=== PATIENT | female | born 1945 | race American Indian/Alaskan Native ===

== ENCOUNTER 2018-11-15 07:20 | Outpatient (CLI) | payer MEDICARE | END 2018-11-15 07:21 | disposition home or self-care (01) | LOC: C.PAT 07:20 | DX: L72.3 Sebaceous cyst (principal) ==

== ENCOUNTER 2018-11-17 09:30 | Day surgery (SDC) | payer MEDICARE ==
[2018-11-15 07:36] VITALS: BMI 33.4
[2018-11-17] MEDS ORDERED: Lidocaine Hydrochloride 0 ML INJ ONE (12:08)
[2018-11-17] MEDS ORDERED: Bupivacaine-Epi 0.5%-1:200,000 PF Inj ONE (12:09)
[2018-11-17] MEDS ORDERED: Bupivacaine 0.25% 20 ML INJ IJ ONE (12:25)
[2018-11-17] MEDS ORDERED: Lidocaine/Epinephrine 1% 1:100000 10 ML IJ ONE (12:26)
[2018-11-17] MEDS ORDERED: Propofol 10 mg/ml Inj (20 ML) ONE (12:58)
[2018-11-17] MEDS ORDERED: Midazolam 2 MG/2 ML VIAL ONE (12:58)
[2018-11-17] MEDS ORDERED: ceFAZolin 1 gm in NS 2 GM/200 ML BAG IVPB ONE (12:59)
[2018-11-17] MEDS ORDERED: HYDROmorphone 0.5 mg/0.5 ml ISec IVP PRN (13:43)
--- NOTE | 2018-11-17 13:44 | PCM.SURG1 ---
Surgeon's Initial Post Op Note - Surgeon's Notes Surgeon: Dr. Montenegro Educational Coordinator: Kodi PGY2 Type of Anesthesia: MAC, IV Sedation, Local Anesthesia Administered By: Sonia Lawrence Pre-Operative Diagnosis: Sebaceous cyst of Neck Operative Findings: see operative report Post-Operative Diagnosis: same Operation Performed: Excision of posterior neck sebaceous cyst Specimen/Specimens Removed: sebaceous cyst Estimated Blood Loss: EBL {In ML}: 5 Blood Products Given: N/A Drains Used: No Drains Post-Op Condition: Good Date of Surgery/Procedure: 11/17/18 Time of Surgery/Procedure: 13:44
[2018-11-17 15:17] VITALS: BP 165/79; PULSE 59; RESP 16; TEMP 97.7; O2SAT 99
--- NOTE | 2018-11-18 02:05 | OP ---
PROCEDURE DATE: 11/17/2018 PREOPERATIVE DIAGNOSIS: Sebaceous cyst of the posterior neck, approximately 3 x 2 cm size. POSTOPERATIVE DIAGNOSIS: Sebaceous cyst of the posterior neck, approximately 3 x 2 cm size. PROCEDURES: 1. Excision of the sebaceous cyst of the neck, 3 x 2 cm size. 2. Layered closure of the wound, 3 x 2 x 2 cm size. ANESTHESIA: Local anesthesia plus sedation. ESTIMATED BLOOD LOSS: Around 10 mL. DRAINS: None. PATHOLOGY: The sebaceous cyst with overlying skin was sent for the pathology. COMPLICATIONS: None. INTRAOPERATIVE FINDINGS: The patient had approximately 3 x 2 cm sebaceous cyst of the posterior neck. DESCRIPTION OF PROCEDURE: On intraoperative steps, this is a 73-year-old female who was diagnosed with a sebaceous cyst of the posterior neck and the patient was consented for the excision, brought to the OR, placed supine on the operating table. After induction of the anesthesia, the posterior neck was prepped and draped in the usual sterile fashion. The local anesthesia was injected and elliptical incision was made approximately 3 x 2 cm size. The dissection was carried down superior and inferior and dissection was carried down deep up to the underlying deep subcutaneous tissue and fascia. The sebaceous cyst was completely excised. It was sent off the table for the pathology. Proper hemostasis was achieved and now the wound was approximately 3 x 2 x 2 cm size to prevent the seroma. The wound was closed in multiple layers. The upper and lower flaps were sutured to the underlying fascia, the deep subcu with 3-0 Vicryl, superficial subcu with 3-0 Vicryl, skin with 4-0 Monocryl, and dry sterile dressing was applied. The patient tolerated the procedure well. Count of instrument and gauze was correct. There was no apparent complication. Jose Montenegro MD
== END 2018-11-17 15:23 | disposition home or self-care (01) ==
LOC: C.SDS 09:30
PROVIDERS: ATTEND Surgery Surgical Critical Care
DX: L72.3 Sebaceous cyst (principal)
CPT/HCPCS: 11424; 12042; 88304; J0690; J2250; J2704; J3010